=== PATIENT | male | born 1945 | race Caucasian/White ===

== ENCOUNTER 2020-01-05 11:27 | Outpatient (RCR) | payer MEDICARE, SELFPAY ==
[2019-11-02 12:49] LABS: INR 2.2
[2019-12-02 14:50] LABS: INR 2.4; Prothrombin Time 23.7 Seconds (9.64-11.0)
[2020-01-05 11:47] LABS: INR 2.9; Prothrombin Time 28.6 Seconds (9.64-11.0)
== END 2020-01-31 23:59 | disposition home or self-care (01) ==
LOC: CHSLAB 11:27
DX: D68.318 Other hemorrhagic disorder due to intrinsic circulating anticoagulants, antibodies, or inhibitors (principal)
CPT/HCPCS: 36415; 85610

== ENCOUNTER 2020-04-05 11:20 | Outpatient (RCR) | payer MEDICARE, SELFPAY ==
[2020-02-13 08:34] LABS: INR 2.5; Prothrombin Time 24.8 Seconds (9.64-11.0)
[2020-04-05 11:39] LABS: INR 2.2
== END 2020-05-13 23:59 | disposition home or self-care (01) ==
LOC: CHSLAB 11:20
PROVIDERS: PCP General Practice; Visit Provider General Practice
DX: D68.318 Other hemorrhagic disorder due to intrinsic circulating anticoagulants, antibodies, or inhibitors (principal)
CPT/HCPCS: 36415; 85610

== ENCOUNTER 2020-12-11 11:23 | Outpatient (RCR) | payer MEDICARE, SELFPAY ==
[2020-09-24 11:33] LABS: INR 2.8; Prothrombin Time 28.4 Seconds (9.50-12.10)
[2020-10-22 07:46] LABS: INR 2.5; Prothrombin Time 25.6 Seconds (9.50-12.10)
[2020-12-11 11:46] LABS: INR 2.3
== END 2020-12-23 23:59 | disposition home or self-care (01) ==
LOC: CHSLAB 11:23
DX: I48.0 Paroxysmal atrial fibrillation (principal)
CPT/HCPCS: 36415; 85610

== ENCOUNTER 2021-03-05 10:57 | Outpatient (RCR) | payer MEDICARE, SELFPAY ==
[2021-01-16 09:16] LABS: INR 2.6; Prothrombin Time 26.1 Seconds (9.50-12.10)
[2021-03-05 11:20] LABS: INR 2.5; Prothrombin Time 25.8 Seconds (9.50-12.10)
== END 2021-04-16 23:59 | disposition home or self-care (01) ==
LOC: CHSLAB 10:57
DX: I48.0 Paroxysmal atrial fibrillation (principal)
CPT/HCPCS: 36415; 85610

== ENCOUNTER 2021-06-24 11:16 | Outpatient (CLI) | payer MEDICARE, SELFPAY ==
[2021-06-24 11:41] LABS: Basophils Absolute Auto 0.03 K/mm3 (0.00-0.10); Basophils Percent Auto 0.5 % (0.0-1.0); Eosinophils Percent Auto 3.5 % (1.0-6.0); Hemoglobin 14.5 g/dL (12.4-15.3); Immature Granulocyte Absolute 0.01 K/mm3 (0.00-0.00); Immature Granulocyte Percent A 0.2 % (0.0-0.0); Lymphocytes Percent Auto 26.5 % (18.0-42.0); Mean Corpuscular HGB Conc 33.7 g/dL (32.0-36.0); Mean Corpuscular Hemoglobin 29.6 pg (27.0-31.0); Mean Corpuscular Volume 87.8 fL (78.0-102.0); Mean Platelet Volume 8.8 fl (8.7-11.0); Monocytes Absolute Auto 0.49 K/mm3 (0.10-0.90); Monocytes Percent Auto 8.7 % (2.0-11.0); Neutrophils Absolute Auto 3.4 K/mm3 (1.7-7.2); Neutrophils Percent Auto 60.6 % (50.0-70.0); Platelet Count Result 171 K/mm3 (150-420); Red Cell Distribution Width 14.4 % (11.6-14.4); White Blood Count 5.7 K/mm3 (4.8-10.8)
[2021-06-24 11:54] LABS: INR 2.8; Prothrombin Time 28.1 Seconds (9.50-12.10)
[2021-06-24 12:38] LABS: Alanine Aminotransferase 42 U/L (16-63); Albumin Level 3.8 g/dL (3.4-5.0); Alkaline Phosphatase 148 U/L (46-116); Anion Gap 10 mmol/L (8-16); Aspartate Amino Transferase 25 U/L (15-37); Bilirubin,Total 0.6 mg/dL (0.00-1.00); Blood Urea Nitrogen 27 mg/dL (7-18); Carbon Dioxide 27 mmol/L (21-32); Chloride 105 mmol/L (98-108); Cholesterol 110 mg/dL (0-200); Estimated Glomerular Filt Rate 49; Glucose 134 mg/dL (70-99); HDL Direct 32 mg/dL (40-60); LDL Cholesterol Calculated 40 mg/dL (<130); Osmolality Calculated 301 mOsm/kg (285-295); Potassium 3.9 mmol/L (3.5-5.1); Sodium 142 mmol/L (136-145); Total Protein 6.9 g/dL (6.4-8.2); Triglycerides 188 mg/dL (0-150)
== END 2021-06-24 11:17 | disposition home or self-care (01) ==
LOC: CHSLAB 11:21
PROVIDERS: PCP Family Medicine; Visit Provider Family Medicine
DX: E78.2 Mixed hyperlipidemia (principal); I10 Essential (primary) hypertension; I48.0 Paroxysmal atrial fibrillation
CPT/HCPCS: 36415; 80053; 80061; 85025; 85610

== ENCOUNTER 2021-09-11 14:14 | Emergency (ER) | payer MEDICARE, SELFPAY ==
[2021-09-11] VITALS (11 sets, daily range): BP systolic 108–124; BP diastolic 59–98; PULSE 57–159; RESP 16–20; TEMP 36.6–36.9; O2SAT 96–99
--- NOTE | ~2021-09-11 | XR_ITS ---
EXAMINATION: XR chest 1V portable INDICATION: Chest pain TECHNIQUE: Portable AP chest at 1441 hours COMPARISON: None available FINDINGS: The lungs are free of acute opacities. There is a questionable small left pleural effusion. No pneumothorax is identified. The heart size is upper limits of normal for technique. IMPRESSION: 1. Possible small left pleural effusion. Reviewed, dictated and finalized at location A.
--- NOTE | 2021-09-11 14:18 | ECG_ITS ---
Measurements Intervals [place] Rate: 156 P: WI: 0 QRS: -9 QRSD: 83 T: 77 QT: 289 QTc: 466 Interpretive Statements ATRIAL FLUTTER/TACHYCARDIA WITH RAPID VENTRICULAR RESPONSE CANNOT RULE OUT INFERIOR INFARCTION, AGE INDETERMINATE ABNORMAL ECG NO PREVIOUS ECG AVAILABLE FOR COMPARISON Electronically Signed On 09-11-2021 15:42:06 CDT by Saturnino Marques M.D.
[2021-09-11 14:34] LABS: Basophils Absolute Auto 0.05 K/mm3 (0.00-0.10); Basophils Percent Auto 0.6 % (0.0-1.0); Eosinophils Percent Auto 2.6 % (1.0-6.0); Hemoglobin 14.7 g/dL (12.4-15.3); Immature Granulocyte Absolute 0.02 K/mm3 (0.00-0.00); Immature Granulocyte Percent A 0.3 % (0.0-0.0); Lymphocytes Absolute Auto 2.06 K/mm3 (1.10-4.50); Lymphocytes Percent Auto 26.4 % (18.0-42.0); Mean Corpuscular HGB Conc 33.4 g/dL (32.0-36.0); Mean Corpuscular Hemoglobin 28.9 pg (27.0-31.0); Mean Corpuscular Volume 86.4 fL (78.0-102.0); Mean Platelet Volume 8.9 fl (8.7-11.0); Monocytes Absolute Auto 0.55 K/mm3 (0.10-0.90); Neutrophils Absolute Auto 4.9 K/mm3 (1.7-7.2); Neutrophils Percent Auto 63.1 % (50.0-70.0); Platelet Count Result 173 K/mm3 (150-420); Red Blood Count 5.09 M/mm3 (4.70-6.10); Red Cell Distribution Width 14.3 % (11.6-14.4); White Blood Count 7.8 K/mm3 (4.8-10.8)
[2021-09-11] MEDS: SODIUM CHLORIDE 0.9% IV 1,000 ML 999 ML IV CONT ×2 (14:47→15:55)
[2021-09-11] MEDS: ASPIRIN 325 MG ENTERIC TABLET PO (14:49)
[2021-09-11 14:53] LABS: Alanine Aminotransferase 54 U/L (16-63); Albumin Level 3.4 g/dL (3.4-5.0); Alkaline Phosphatase 139 U/L (46-116); Anion Gap 9 mmol/L (8-16); Aspartate Amino Transferase 45 U/L (15-37); Bilirubin,Total 0.6 mg/dL (0.00-1.00); Blood Urea Nitrogen 27 mg/dL (7-18); Calcium 8.5 mg/dL (8.5-10.1); Carbon Dioxide 25 mmol/L (21-32); Chloride 105 mmol/L (98-108); Estimated CRCL calculation 46 ml/min; Estimated Glomerular Filt Rate 46; Glucose 174 mg/dL (70-99); Osmolality Calculated 297 mOsm/kg (285-295); Sodium 139 mmol/L (136-145); Troponin I 39.3 ng/L (0.00-60.4)
[2021-09-11 14:55] LABS: Lactic Acid Reflex 1.8 mmol/L (0.4-2.0); Potassium 5.3 mmol/L (3.5-5.1)
[2021-09-11] MEDS: METOPROLOL TARTRATE INJ 5 MG/5 ML VIAL 2.5 MG IV PUSH ×2 (15:55→16:15)
[2021-09-11 16:55] LABS: Troponin I 74.6 ng/L (0.00-60.4)
[2021-09-11] MEDS: dilTIAZem HCl INJ 25 MG/5 ML VIAL 20 MG IV PUSH (16:56)
[2021-09-11] MEDS: dilTIAZem 100 MG/100 ML 100 MG/100 ML BAG IV CONT (16:57)
--- NOTE | 2021-09-11 17:03 | ECG_ITS ---
Measurements Intervals [place] Rate: 67 P: 20 OR: 216 QRS: -16 QRSD: 93 T: 29 QT: 362 QTc: 383 Interpretive Statements SINUS RHYTHM WITH FIRST DEGREE AV BLOCK WITH OCCASIONAL SUPRAVENTRICULAR PREMATURE COMPLEXES MODERATE VOLTAGE CRITERIA FOR LVH, CONSIDER NORMAL VARIANT [MEETS CRITERIA IN ONE OF: R(aVL), S(V1), R(V5), R(V5/V6)+S(V1)] CANNOT RULE OUT INFERIOR INFARCTION ABNORMAL ECG COMPARED TO ECG 09/11/2021 14:25:35 SINUS RHYTHM NOW PRESENT FIRST DEGREE AV BLOCK NOW PRESENT Electronically Signed On 09-12-2021 16:39:10 CDT by Saturnino Marques M.D.
[2021-09-11] MEDS: SODIUM CHLORIDE 0.9% IV 1,000 ML 125 ML IV CONT (17:06)
[2021-09-11 17:41] LABS: SARS-CoV-2 Ag Negative (Negative)
--- NOTE | 2021-09-11 18:22 | PC.NURSE ---
pt resting comfortably per cot, awaiting call back from hospitalist from [facility] , placed per [facility] transfer center.
--- NOTE | 2021-09-11 18:41 | PC.NURSE ---
pt has declined food tray,.
--- NOTE | 2021-09-11 19:05 | PC.NURSE ---
report to [facility]. update on transfer status. Report to dr bowie , update on transfer status. updated pt and also.
--- NOTE | 2021-09-11 19:42 | PC.NURSE ---
Spoke with [facility] transfer center again for update. Was told that the hospitalist at [facility] still has not called back. The shift changed at 19:00. They will continue to page the new hospitalist.
--- NOTE | 2021-09-11 20:06 | PC.NURSE ---
Dr. Kaur from [facility] called and told Dr. Toledo that there were no beds available for pt at [facility]. Contacted [facility] transfer center again and they are working on placement at [facility].
--- NOTE | 2021-09-11 20:11 | PC.NURSE ---
Updated Pt about transfer. Pt states that he does not want to go to [facility] and he would rather go home. Pt informed that going home is not recommended, but it is his right and if he wishes to leave he may do so. Pt also informed that we can contact any hospital he would like, but his PCP, Dr. Mccullough, is who recommended sending pt to [facility] or [facility] so that he can see him. Dr. Toledo at bedside speaking with pt.
--- NOTE | 2021-09-11 20:32 | PC.NURSE ---
After speaking with pt further about risks/benefits of signing out AMA pt has agreed to be transferred to another facility. Pt still does not want to go to [facility]. Call placed to [facility] per pt's request. Awaiting call back from administrative secretary.
--- NOTE | 2021-09-11 20:36 | ED.CHESTPAIN ---
HPI - Chest Pain General Chief Complaint: Chest Pain Stated Complaint: arm pain chest pressure sob Time Seen by Provider: 09/11/21 14:16 Source: patient, family and RN notes reviewed Mode of arrival: ambulatory Limitations: no limitations History of Present Illness complaint: chest heaviness and chest discomfort Pertinent past history: other (known atrial fibrillation) Onset (ago): year(s) Timing of current episode: daily (2) Prior episodes: Yes Onset: during rest Pain location: left chest Pain radiation: left arm and neck Severity: moderate Pain scale (0-10): 6 Quality: tightness, heaviness and dull Relieving factors: nothing Exacerbating factors: nothing Associated symptoms: dyspnea and palpitations Treatment prior to arrival: none Risk Factors Coronary artery disease risk factors: hyperlipidemia and hypertension Related Data Home Medications Medication Instructions Recorded Confirmed allopurinol 100 mg PO DAILY 09/11/21 09/11/21 atorvastatin 40 mg PO DAILY 09/11/21 09/11/21 hydrochlorothiazide 12.5 mg PO DAILY 09/11/21 09/11/21 hydrochlorothiazide 25 mg PO DAILY 09/11/21 09/11/21 losartan 50 mg PO DAILY 09/11/21 09/11/21 metoprolol succinate 25 mg PO DAILY 09/11/21 09/11/21 tamsulosin 0.4 mg PO DAILY 09/11/21 09/11/21 warfarin 0.5 mg PO DAILY 09/11/21 09/11/21 warfarin 5 mg PO DAILY 09/11/21 09/11/21 Allergies Allergy/AdvReac Type Severity Reaction Status Date / Time No Known Allergies Allergy Unverified 07/16/16 15:50 Review of Systems Review of Systems: All systems reviewed & are unremarkable except as noted in HPI and below PMFSH Past Medical History Medical History (Updated 09/11/21 @ 21:53 by Maxx Toledo MD) Left knee sprain Exam Const: General: no acute distress and alert Nutritional Appearance: well nourished Orientation/consciousness: patient oriented x3 Limitations: no limitations HENMT: Head: normal to inspection Ears: external ears normal, TM's normal bilaterally and EAC's normal General nose exam: Normal external nose present and Normal nares present Face and sinus: normal facial exam and sinuses nontender Mouth: Yes moist mucous membranes Eyes: Conjunctivae: conjunctivae normal Pupils: Equal, round and reactive pupils present EOM: EOMs intact bilaterally Neck: Neck: normal visual inspection and no lymphadenopathy Chest: Chest palpation & inspection: normal inspection of the chest Resp: Effort & Inspection: normal respiratory effort Auscultation: clear to auscultation bilaterally Cardio: Rate: tachycardic Rhythm: abnormal rhythm GI: GI Palp: Yes Soft to palpation and No Tenderness to palpation present (GI) : General: Yes no CVA tenderness Male General Exam: Yes normal external exam Testes: Testes normal Back/Spine/Pelvis: Back: no CVA tenderness Skin: General skin exam: normal color Neuro: General: patient oriented x3, moves all extremities, no focal motor deficits and CN's II-XI intact bilaterally Extrem: General: normal to inspection and no pedal edema Psych: Appearance: grossly normal and well kempt Mental Status: mental status grossly normal Attitude: cooperative Thought content: Yes Normal thought content present Course Course Emergency Course: Pt converted to sinus rhythm and was pain-free in the ED. Reevaluation(s) Date: 09/11/21 Time: 15:10 Vital Signs Vital signs: Vital Signs Temperature 36.6 C 09/11/21 14:20 Pulse Rate 159 H 09/11/21 14:20 Respiratory Rate 20 09/11/21 14:20 Blood Pressure 110/74 09/11/21 14:20 Pulse Oximetry 98 09/11/21 14:20 Temperature 36.9 C 09/11/21 18:23 Pulse Rate 57 L 09/11/21 20:36 Respiratory Rate 16 09/11/21 20:36 Blood Pressure 122/76 09/11/21 20:36 Pulse Oximetry 96 09/11/21 20:36 MDM - Chest Pain Differential Diagnosis Differential diagnosis: Likely unstable angina pectoris, atypical chest pain and other (Nstemi, ) Medical Records Data Attestation: I rev
--- NOTE | 2021-09-11 21:53 | PC.NURSE ---
DHRUV and javier drips continued with EMS transfer to [facility].
== END 2021-09-11 21:58 | disposition short-term general hospital (02) ==
PROVIDERS: Emergency Provider Emergency Medicine; PCP Family Medicine
DX: I20.0 Unstable angina (principal); I21.4 Non-ST elevation (NSTEMI) myocardial infarction; Z20.822 Contact with and (suspected) exposure to COVID-19
CPT/HCPCS: 36415; 71045; 80053; 83605; 84484; 85025; 87426; 93005; 96361; 96365; 96366; 96375; 99291; A9270; C9803; J7030

== ENCOUNTER 2021-09-11 23:28 | Observation (INO) | payer MEDICARE, SELFPAY ==
--- NOTE | ~2021-09-11 | NM_ITS ---
EXAMINATION: NM michelle stress w perfusion DATE: 09/12/2021 15:25 INDICATION: Chest pain. Elevated troponin. TECHNIQUE: Rest images were obtained following intravenous administration of 10.2 mCi Tc99m tetrofosm in (Myoview). The patient was infused intravenously with Lexiscan (regadenoson). Then, 29.3 mCi Tc99m tetrofosmin (Myoview) was administered intravenously, and supine and prone stress images were obtain ed. Data was reconstructed into short axis and horizontal and vertical long axis SPECT images. Gated SPECT images were also obtained. COMPARISON: None. FINDINGS: There is no definite reversible or fixed perfusion abnormality to suggest ischemia or infar ction. There is no segmental wall motion abnormality. Left ventricular ejection fraction measures > 70%. IMPRESSION: 1. No definite ischemia or infarct. 2. Normal left ventricular ejection fraction measuring >70%. Reviewed, dictated and finalized at location A.
[2021-09-11 22:25] VITALS: BP 147/87; PULSE 64; RESP 18; TEMP 36.4; O2SAT 97
[2021-09-11 22:39] VITALS: BMI 27.6
--- NOTE | 2021-09-11 22:40 | ADMGEN ---
This patient, Deep Doan III, was admitted to IMU Room 213-01 at 2230 by EMS from [facility]. Patient/family oriented to hospital policies and general routines including ID bracelet, bed and alarms, visiting hours, pain management, procedures, bathroom and other care routines, personal items, smoking policy, room service/diet, and visiting hours. Information on how to activate the Rapid Response Team has been discussed. Patient/Family are encouraged to report perceived risks to care and to ask questions if they do not understand what they are told or what they should do.
[2021-09-11 23:51] VITALS: BP 120/65; PULSE 84; RESP 15; TEMP 36.3; O2SAT 96
[2021-09-12] VITALS (10 sets, daily range): BP systolic 105–138; BP diastolic 59–71; PULSE 53–82; RESP 18–22; TEMP 36.3–36.8; O2SAT 96–97
--- NOTE | 2021-09-12 | ECHO_ITS ---
Patient Info Name: Deep Pate Young Age: 76 years : 1945 Gender: Male Ht: 72 in Wt: 220 lbs BSA: 2.27 m2 HR: 69 bpm BP: 116 / 62 mmHg Exam Date: 09/12/2021 9:58 AM Exam Location: [facility] Pulmonary Patient Status: Outpatient Admit Date: 09/11/2021 Staff Ordering Physician: Kenya Stovall MD Record Label Intern: Margarito Corea, REJI, RT Attending Provider: Kenya Stovall MD Referring Physician: Sia SAUER; Exam Type: CA echo doppler color flow Study Info Indications R07.9 - Chest pain, unspecified Complete two-dimensional, color flow and Doppler transthoracic echocardiogram is performed. Strain analysis performed. Summary 1. Complete two-dimensional, color flow and Doppler transthoracic echocardiogram is performed. 2. Left ventricular systolic function is normal, estimated at 60-65%. 3. There is moderately increased left ventricular wall thickness. 4. The left ventricular diastolic function is grade II diastolic dysfunction. 5. Left atrial chamber dimension is mildly enlarged. 6. There is mild aortic valve calcification. 7. There is mild aortic valve regurgitation. 8. There is no aortic valve stenosis. 9. There is mild tricuspid valve regurgitation. 10. Moderate pulmonary hypertension, estimated pulmonary arterial systolic pressure is 46 mmHg. 11. There is moderate mitral valve regurgitation. Left Ventricle Left ventricular chamber dimension is normal. Left ventricular systolic function is normal, estimated at 60-65%. There is moderately increased left ventricular wall thickness. Left ventricular septal wall motion is normal. The left ventricular diastolic function is grade II diastolic dysfunction. Global longitudinal strain is normal at -18 %. Right Ventricle Right ventricular chamber dimension is normal. Right ventricular systolic function is normal. Left Atria Left atrial chamber dimension is mildly enlarged. Right Atria Right atrial chamber dimension is normal. Atrial Septum Intact interatrial septum visualized by color flow imaging. Aortic Valve The aortic valve is trileaflet. There is no aortic valve stenosis. There is mild aortic valve regurgitation. There is mild aortic valve calcification. Pulmonic Valve The pulmonic valve is normal. There is no pulmonic valve stenosis. There is no pulmonic regurgitation. Mitral Valve The mitral valve has normal leaflets. There is no mitral valve stenosis. There is moderate mitral valve regurgitation. Tricuspid Valve The tricuspid valve leaflets are normal. There is no significant tricuspid valve stenosis. There is mild tricuspid valve regurgitation. Moderate pulmonary hypertension, estimated pulmonary arterial systolic pressure is 46 mmHg. Pericardium/Pleural There is trivial pericardial effusion. Inferior Vena Cava Dilated inferior vena cava with <50% collapse upon inspiration consistent with elevated right atrial pressure, 15 mmHg. Aorta The aortic root size at the sinus of Valsalva is normal. The prox ascending aorta size is normal. Left Ventricular Outflow Tract Name Value Normal LVOT 2D LVOT Diameter 2.0 cm LVOT Doppler
--- NOTE | 2021-09-12 | EST_ITS ---
Patient Info Name: Deep Doan Age: 76 years : 1945 Gender: Male Ht: 72 in Wt: 204 lbs BSA: 2.18 m2 HR: 71 bpm BP: 134 / 70 mmHg Exam Date: 09/12/2021 1:32 PM Exam Location: [facility] Stress Patient Status: Inpatient Admit Date: 09/11/2021 Staff Ordering Physician: Trish Bell Attending Provider: Kenya Stovall MD Exercise Technologist: Kamryn Gallegos RDCS Exercise Physician: milton Exam Type: CA stress michelle w NM Study Info Indications R07.89 - Other chest pain A regadenoson stress test was performed. Summary 1. Please correlate with nuclear medicine images, reported separately. 2. No abnormal ST-T wave changes with lexiscan. Protocol: Lexiscan Stress ECG Details Stage: REST Duration (min): 0 min : 55 sec HR (bpm): 71 SBP (mmHg): 134 DBP (mmHg): 70 Stage: REST Duration (min): 7 min : 2 sec HR (bpm): 67 SBP (mmHg): 134 DBP (mmHg): 70 Stage: STAGE 1 Duration (min): 0 min : 59 sec HR (bpm): 91 SBP (mmHg): 145 DBP (mmHg): 82 Stage: RECOVERY Duration (min): 1 min : 0 sec HR (bpm): 83 SBP (mmHg): 153 DBP (mmHg): 64 Stage: RECOVERY Duration (min): 2 min : 0 sec HR (bpm): 80 SBP (mmHg): 153 DBP (mmHg): 64 Stage: RECOVERY Duration (min): 3 min : 0 sec HR (bpm): 79 SBP (mmHg): 135 DBP (mmHg): 65 Stage: RECOVERY Duration (min): 3 min : 25 sec HR (bpm): 77 SBP (mmHg): 135 DBP (mmHg): 65 Rest HR: 67 bpm Peak HR: 91 bpm Rest Sys BP: 134 mmHg Peak Sys BP: 153 mmHg Max Pred HR: 145 bpm % Max Pred HR: 63 % Target HR: 123 bpm Max RPP: 13,923 bpm*mmHg BP Response: Normal blood pressure response Termination Reason: Completed protocol Cardiac Symptoms: None Total Time: 1 min : 0 sec Rest Jones BP: 70 mmHg Peak Jones BP: 64 mmHg Total Dose: 0.4 mg Resting ECG Normal sinus rhythm. PACs. Stress ECG No abnormal ST/T wave changes with exercise. Arrhythmias Frequent PACs. Occasional PVCs. Report Signatures
[2021-09-12] MEDS: LOSARTAN POTASSIUM 50 MG TABLET PO (00:17)
[2021-09-12] MEDS: dilTIAZem HCL 60 MG TABLET PO ×2 (00:17→06:32)
[2021-09-12] MEDS: METOPROLOL SUCCINATE EXT REL 25 MG TABCR PO (00:17)
[2021-09-12] MEDS: ATORVASTATIN 40 MG TABLET PO (00:17)
--- NOTE | 2021-09-12 00:24 | PC.NURSE ---
Patient direct admitted from [facility] on a Cardizem drip at 5. Drip has been stopped now and PO Cardizem 60mg given as ordered.
[2021-09-12 05:24] LABS: Anion Gap 6 mmol/L (8-16); Blood Urea Nitrogen 29 mg/dL (9-20); Carbon Dioxide 22 mmol/L (22-30); Chloride 113 mmol/L (98-107); Estimated CRCL calculation 45 ml/min; Estimated Glomerular Filt Rate 49; Glucose 165 mg/dL (65-110); Potassium 4.1 mmol/L (3.4-5.0); Sodium 141 mmol/L (137-145)
[2021-09-12 05:38] LABS: INR 2.4; Prothrombin Time 25.5 Seconds (11.1-14.7); Troponin I 0.142 ng/mL (0.000-0.034)
[2021-09-12] MEDS: allopurinoL 100 MG TABLET PO (09:39)
[2021-09-12] MEDS: TAMSULOSIN HCL 0.4 MG CAPSULE PO (09:39)
--- NOTE | 2021-09-12 11:44 | PM.IMHP ---
H&P: HPI History of Present Illness Date/Time: 09/12/21 11:44 Chief Complaint: Shortness of breath, palpitations Narrative: Date of service 09/12/2021 Reason for admission: Shortness breath, palpitations, non-STEMI History: Patient is a 76-year-old male who has a history of paroxysmal atrial fibrillation, hypertension, hyperlipidemia as well as a TIA. Patient states that about 3-4 years ago he had 2 TIAs. He also describes being cardioverted. This was treated at [place]. He recently established with his new primary care provider Dr. Mccullough. He was recently switched from hydrochlorothiazide to Toprol-XL because of some worsening palpitations a he had been having. Over the past couple of days prior to admission he had been feeling rather poorly. He was having significant amounts of shortness of breath as well as palpitations. He generally felt palpitations most of the time. He went to bed the night before last and was feeling okay but then woke up short of breath. His shortness of breath persisted and his palpitations continued to the point that his insisted that he go to the emergency department for further workup and evaluation. In the emergency room he was found to be in atrial fibrillation with rapid ventricular response. He was started on diltiazem and did convert to sinus rhythm. His symptoms improved he states over a period of several minutes after treatment in the ER and [place]. His heart rate initially was in the 150s to 160s. Blood work though was performed including troponins. Troponins did increase and he was transferred to [facility] from [place] for further workup evaluation and treatment. Patient feels well today and denies any chest pain, shortness breath, syncope, presyncope, paroxysmal nocturnal dyspnea, orthopnea, edema palpitations at this present time. Heart rate and rhythm is still normal. Patient does describe some left sided shoulder/arm pain that did radiate into the left side of his neck and across his upper anterior chest yesterday while having shortness of breath and his extreme palpitations. Review of Systems Review of Systems: All systems reviewed & are unremarkable except as noted in HPI and below Constitutional: Constitutional: Denies weakness Eyes: Eyes: Denies blurry vision ENT: Reports Normal hearing present Cardiovascular: Cardiovascular: Reports chest pain Respiratory: Respiratory: Reports dyspnea Gastrointestinal: Gastrointestinal: Denies abdominal pain Genitourinary: Genitourinary: Denies dysuria Musculoskeletal: Musculoskeletal: Denies neck pain Integumentary/Breasts: Skin/Breast: Denies dry skin Neurologic: Denies headache(s) Psychiatric: Psychiatric: Denies anxiety Endocrine: Endocrine: Denies cold intolerance Hematologic/Lymphatic: Hematologic/Lymphatic: Denies easy bleeding Allergic/Immunologic: Allergic/Immunologic: Denies GI upset with certain foods PMFSH Past Medical History Medical History (Updated 09/12/21 @ 11:53 by Saturnino Marques MD) Chronic anticoagulation Essential hypertension History of TIA (transient ischemic attack) Hyperlipidemia Left knee sprain Paroxysmal atrial fibrillation Family History Family History (Updated 09/12/21 @ 11:52 by Saturnino Marques MD) Father Bladder cancer Social History Social History Smoking packs per day: 2 Smoking cigarettes per day: 40.0 Years smoked: 45 Smoking pack-years: 90.00 Smoking status: Former smoker Second hand tobacco smoke exposure: No Alcohol intake: current Substance use: current Substance use type: does not use Other substance usage details: patient has occasional alcohol drink every few months Spiritual care concerns: No Meds Home Medications and Allergies Home Medications Medication Instructions Recorded Confirmed Type allopurinol 100 mg PO DAILY 09/11/21 09/11/21 History atorvastatin 40 mg PO HS 09/11/21 09/11/21 History losartan 50 mg
--- NOTE | 2021-09-12 15:29 | PM.SD2 ---
Same Day Admit/Disch: HPI History of Present Illness Chief complaint: A fib with RVR,chest pain, elevated troponin Narrative: Patient is a 76-year-old male who has a history of paroxysmal atrial fibrillation, hypertension, hyperlipidemia as well as a TIA. Patient states that about 3-4 years ago he had 2 TIAs. He also describes being cardioverted. This was treated at [place]. He recently established with his new primary care provider Dr. Mccullough. He was recently switched from hydrochlorothiazide to Toprol-XL because of some worsening palpitations a he had been having. Over the past couple of days prior to admission he had been feeling rather poorly. He was having significant amounts of shortness of breath as well as palpitations. He generally felt palpitations most of the time. He went to bed the night before last and was feeling okay but then woke up short of breath. His shortness of breath persisted and his palpitations continued to the point that his insisted that he go to the emergency department for further workup and evaluation. In the emergency room he was found to be in atrial fibrillation with rapid ventricular response. He was started on diltiazem and did convert to sinus rhythm. His symptoms improved he states over a period of several minutes after treatment in the ER and [place]. His heart rate initially was in the 150s to 160s. Blood work though was performed including troponins. Troponins did increase and he was transferred to [facility] from [place] for further workup evaluation and treatment. Patient feels well today and denies any chest pain, shortness breath, syncope, presyncope, paroxysmal nocturnal dyspnea, orthopnea, edema palpitations at this present time. Heart rate and rhythm is still normal. Patient does describe some left sided shoulder/arm pain that did radiate into the left side of his neck and across his upper anterior chest yesterday while having shortness of breath and his extreme palpitations. [facility] Past Medical History Medical History Chronic anticoagulation Essential hypertension History of TIA (transient ischemic attack) Hyperlipidemia Left knee sprain Paroxysmal atrial fibrillation Family History Family History Father Bladder cancer Social History Social History Smoking packs per day: 2 Smoking cigarettes per day: 40.0 Years smoked: 45 Smoking pack-years: 90.00 Smoking status: Former smoker Second hand tobacco smoke exposure: No Alcohol intake: current Substance use: current Substance use type: does not use Other substance usage details: patient has occasional alcohol drink every few months Spiritual care concerns: No Same Day Admit/Disch: Med Pre-admit Medications Home Medications Medication Instructions Recorded Confirmed Type allopurinol 100 mg PO DAILY 09/11/21 09/11/21 History atorvastatin 40 mg PO HS 09/11/21 09/11/21 History losartan 50 mg PO HS 09/11/21 09/11/21 History omeprazole 20 mg DAILY 09/11/21 09/11/21 History tamsulosin 0.4 mg PO DAILY 09/11/21 09/11/21 History warfarin 0.5 mg PO DAILY 09/11/21 09/11/21 History warfarin 5 mg PO DAILY 09/11/21 09/11/21 History metoprolol succinate 50 mg PO HS 50 Days #50 tablet 09/12/21 Rx Exam Narrative: Patient awake alert oriented. Appears stated age Const: General: comfortable and no acute distress HENMT: General nose exam: Normal nares present Eyes: Sclera: sclerae normal Neck: Neck: supple and no JVD Chest: Other: No reproducible chest wall pain to palpation Resp: Auscultation: clear to auscultation bilaterally Cardio: Rate: regular rate Rhythm: regular rhythm Other: 2/6 systolic ejection murmur at base GI: Inspection: non-distended Auscultation: normal bowel sounds Skin: General skin exam: normal color Neur
== END 2021-09-12 16:23 | disposition home or self-care (01) ==
PROVIDERS: Admitting Provider Internal Medicine Cardiovascular Disease; PCP Family Medicine; Visit Provider Internal Medicine Cardiovascular Disease
DX: I48.0 Paroxysmal atrial fibrillation (principal); R77.8 Other specified abnormalities of plasma proteins; R79.89 Other specified abnormal findings of blood chemistry; I10 Essential (primary) hypertension; E78.5 Hyperlipidemia, unspecified; Z86.73 Personal history of transient ischemic attack (TIA), and cerebral infarction without residual deficits; Z87.891 Personal history of nicotine dependence; Z79.01 Long term (current) use of anticoagulants
CPT/HCPCS: 36415; 78452; 80048; 84443; 84484; 85610; 93017; 93306; A9270; A9502; G0378; J2785

== ENCOUNTER 2021-10-04 11:13 | Outpatient (RCR) | payer MEDICARE, SELFPAY ==
[2021-08-07 13:47] LABS: INR 2.2; Prothrombin Time 22.3 Seconds (9.50-12.10)
[2021-08-30 12:04] LABS: INR 2.5
[2021-10-04 11:40] LABS: INR 2.2; Prothrombin Time 22.4 Seconds (9.50-12.10)
== END 2021-11-05 23:59 | disposition home or self-care (01) ==
LOC: CHSLAB 11:13
PROVIDERS: PCP Family Medicine; Visit Provider Family Medicine
DX: I48.0 Paroxysmal atrial fibrillation (principal)
CPT/HCPCS: 36415; 85610

== ENCOUNTER 2021-12-12 12:37 | Outpatient (CLI) | payer MEDICARE, SELFPAY ==
[2021-12-12 13:05] LABS: Prothrombin Time 20.3 Seconds (9.50-12.10)
== END 2021-12-12 12:38 | disposition home or self-care (01) ==
LOC: CHSLAB 12:40
PROVIDERS: PCP Family Medicine; Visit Provider Family Medicine
DX: I48.0 Paroxysmal atrial fibrillation (principal)
CPT/HCPCS: 36415; 85610

== ENCOUNTER 2022-01-03 10:50 | Outpatient (RCR) | payer MEDICARE, SELFPAY ==
[2021-11-22 14:40] LABS: INR 3.8; Prothrombin Time 37.7 Seconds (9.50-12.10)
[2022-01-03 11:13] LABS: INR 1.5; Prothrombin Time 15.6 Seconds (9.50-12.10)
== END 2022-02-20 23:59 | disposition home or self-care (01) ==
LOC: CHSLAB 10:50
PROVIDERS: PCP Family Medicine; Visit Provider Family Medicine
DX: I48.0 Paroxysmal atrial fibrillation (principal)
CPT/HCPCS: 36415; 85610

== ENCOUNTER 2022-01-16 09:38 | Outpatient (CLI) | payer MEDICARE, SELFPAY ==
[2022-01-16 09:55] LABS: Basophils Absolute Auto 0.04 K/mm3 (0.00-0.10); Basophils Percent Auto 0.6 % (0.0-1.0); Eosinophils Absolute Auto 0.26 K/mm3 (0.02-0.50); Eosinophils Percent Auto 3.9 % (1.0-6.0); Hematocrit 43.8 % (37.0-46.0); Hemoglobin 14.6 g/dL (12.4-15.3); Immature Granulocyte Absolute 0.04 K/mm3 (0.00-0.00); Immature Granulocyte Percent A 0.6 % (0.0-0.0); Lymphocytes Absolute Auto 1.73 K/mm3 (1.10-4.50); Lymphocytes Percent Auto 26.1 % (18.0-42.0); Mean Corpuscular HGB Conc 33.3 g/dL (32.0-36.0); Mean Corpuscular Hemoglobin 28.6 pg (27.0-31.0); Mean Corpuscular Volume 85.7 fL (78.0-102.0); Mean Platelet Volume 9.1 fl (8.7-11.0); Monocytes Absolute Auto 0.59 K/mm3 (0.10-0.90); Monocytes Percent Auto 8.9 % (2.0-11.0); Neutrophils Percent Auto 59.9 % (50.0-70.0); Platelet Count Result 177 K/mm3 (150-420); Red Blood Count 5.11 M/mm3 (4.70-6.10); Red Cell Distribution Width 14.6 % (11.6-14.4); White Blood Count 6.6 K/mm3 (4.8-10.8)
[2022-01-16 10:09] LABS: INR 2.9; Prothrombin Time 29.1 Seconds (9.50-12.10)
[2022-01-16 10:12] LABS: Alanine Aminotransferase 41 U/L (16-63); Albumin Level 3.7 g/dL (3.4-5.0); Alkaline Phosphatase 145 U/L (46-116); Anion Gap 9 mmol/L (8-16); Aspartate Amino Transferase 17 U/L (15-37); Bilirubin,Total 0.4 mg/dL (0.00-1.00); Blood Urea Nitrogen 29 mg/dL (7-18); Calcium 8.8 mg/dL (8.5-10.1); Carbon Dioxide 26 mmol/L (21-32); Chloride 109 mmol/L (98-108); Cholesterol 91 mg/dL (0-200); Estimated Glomerular Filt Rate 50; Glucose 132 mg/dL (70-99); HDL Direct 30 mg/dL (40-60); LDL Cholesterol Calculated 19 mg/dL (<130); Osmolality Calculated 305 mOsm/kg (285-295); Potassium 4.1 mmol/L (3.5-5.1); Sodium 144 mmol/L (136-145); Total Protein 6.8 g/dL (6.4-8.2); Triglycerides 210 mg/dL (0-150)
== END 2022-01-16 09:39 | disposition home or self-care (01) ==
LOC: CHSLAB 09:40
PROVIDERS: PCP Family Medicine; Visit Provider Family Medicine
DX: I48.0 Paroxysmal atrial fibrillation (principal); I10 Essential (primary) hypertension
CPT/HCPCS: 36415; 80053; 80061; 85025; 85610

== ENCOUNTER 2022-05-27 07:48 | Outpatient (RCR) | payer MEDICARE, SELFPAY ==
[2022-02-28 08:39] LABS: INR 3.3; Prothrombin Time 32.5 Seconds (9.50-12.10)
[2022-03-15 10:47] LABS: INR 1.8; Prothrombin Time 19.2 Seconds (9.50-12.10)
[2022-04-01 14:19] LABS: INR 2.2; Prothrombin Time 22.9 Seconds (9.50-12.10)
[2022-05-08 09:09] LABS: INR 1.9
[2022-05-27 08:32] LABS: Prothrombin Time 20.3 Seconds (9.50-12.10)
== END 2022-05-29 23:59 | disposition home or self-care (01) ==
LOC: CHSLAB 07:48
PROVIDERS: PCP Family Medicine; Visit Provider Family Medicine
DX: I48.0 Paroxysmal atrial fibrillation (principal)
CPT/HCPCS: 36415; 85610

== ENCOUNTER 2022-07-11 08:45 | Outpatient (CLI) | payer MEDICARE, SELFPAY ==
[2022-07-11 09:04] LABS: Basophils Absolute Auto 0.05 K/mm3 (0.00-0.10); Basophils Percent Auto 0.8 % (0.0-1.0); Eosinophils Absolute Auto 0.23 K/mm3 (0.02-0.50); Eosinophils Percent Auto 3.7 % (1.0-6.0); Hemoglobin 14.4 g/dL (12.4-15.3); Immature Granulocyte Absolute 0.02 K/mm3 (0.00-0.00); Immature Granulocyte Percent A 0.3 % (0.0-0.0); Lymphocytes Absolute Auto 1.61 K/mm3 (1.10-4.50); Lymphocytes Percent Auto 25.6 % (18.0-42.0); Mean Corpuscular HGB Conc 33.5 g/dL (32.0-36.0); Mean Corpuscular Hemoglobin 28.7 pg (27.0-31.0); Mean Corpuscular Volume 85.7 fL (78.0-102.0); Mean Platelet Volume 8.7 fl (8.7-11.0); Monocytes Absolute Auto 0.56 K/mm3 (0.10-0.90); Monocytes Percent Auto 8.9 % (2.0-11.0); Neutrophils Absolute Auto 3.8 K/mm3 (1.7-7.2); Neutrophils Percent Auto 60.7 % (50.0-70.0); Platelet Count Result 182 K/mm3 (150-420); Red Blood Count 5.02 M/mm3 (4.70-6.10); Red Cell Distribution Width 14.1 % (11.6-14.4); White Blood Count 6.3 K/mm3 (4.8-10.8)
[2022-07-11 09:16] LABS: Prothrombin Time 20.8 Seconds (9.50-12.10)
[2022-07-11 09:44] LABS: Alanine Aminotransferase 32 U/L (16-63); Albumin Level 3.7 g/dL (3.4-5.0); Alkaline Phosphatase 140 U/L (46-116); Anion Gap 6 mmol/L (8-16); Aspartate Amino Transferase 11 U/L (15-37); Bilirubin,Total 0.4 mg/dL (0.00-1.00); Blood Urea Nitrogen 23 mg/dL (7-18); Calcium 8.9 mg/dL (8.5-10.1); Carbon Dioxide 31 mmol/L (21-32); Chloride 107 mmol/L (98-108); Cholesterol 192 mg/dL (0-200); Estimated Glomerular Filt Rate > 60; Glucose 132 mg/dL (70-99); HDL Direct 32 mg/dL (40-60); LDL Cholesterol Calculated 85 mg/dL (<130); Osmolality Calculated 303 mOsm/kg (285-295); Potassium 4.3 mmol/L (3.5-5.1); Sodium 144 mmol/L (136-145); Total Protein 6.9 g/dL (6.4-8.2); Triglycerides 373 mg/dL (0-150)
== END 2022-07-11 08:46 | disposition home or self-care (01) ==
LOC: CHSLAB 08:47
PROVIDERS: PCP Family Medicine; Visit Provider Family Medicine
DX: I48.0 Paroxysmal atrial fibrillation (principal); I10 Essential (primary) hypertension
CPT/HCPCS: 36415; 80053; 80061; 85025; 85610

== ENCOUNTER 2022-09-15 09:56 | Outpatient (RCR) | payer MEDICARE, SELFPAY ==
[2022-07-02 11:52] LABS: INR 2.5; Prothrombin Time 25.1 Seconds (9.50-12.10)
[2022-08-07 09:37] LABS: INR 2.8; Prothrombin Time 28.6 Seconds (9.50-12.10)
[2022-09-15 10:25] LABS: INR 2.4; Prothrombin Time 24.1 Seconds (9.50-12.10)
== END 2022-09-30 23:59 | disposition home or self-care (01) ==
LOC: CHSLAB 09:56
PROVIDERS: PCP Family Medicine; Visit Provider Family Medicine
DX: I48.0 Paroxysmal atrial fibrillation (principal)
CPT/HCPCS: 36415; 85610

== ENCOUNTER 2022-11-28 10:30 | Outpatient (RCR) | payer MEDICARE, SELFPAY ==
[2022-11-28 10:54] LABS: Prothrombin Time 30.5 Seconds (9.50-12.10)
== END 2023-02-26 23:59 | disposition home or self-care (01) ==
LOC: CHSLAB 10:30
PROVIDERS: PCP Family Medicine; Visit Provider Family Medicine
DX: I48.0 Paroxysmal atrial fibrillation (principal)
CPT/HCPCS: 36415; 85610

== ENCOUNTER 2023-03-09 10:42 | Outpatient (RCR) | payer MEDICARE, SELFPAY ==
[2022-12-12 13:56] LABS: INR 1.7; Prothrombin Time 17.7 Seconds (9.50-12.10)
[2023-02-27 10:23] LABS: INR 1.9; Prothrombin Time 20.2 Seconds (9.50-12.10)
[2023-03-09 11:11] LABS: INR 1.6; Prothrombin Time 16.6 Seconds (9.50-12.10)
== END 2023-03-11 23:59 | disposition home or self-care (01) ==
LOC: CHSLAB 10:42
PROVIDERS: PCP Family Medicine; Visit Provider Family Medicine
DX: I48.0 Paroxysmal atrial fibrillation (principal)
CPT/HCPCS: 36415; 85610

== ENCOUNTER 2023-05-27 10:06 | Outpatient (RCR) | payer MEDICARE, SELFPAY ==
[2023-03-16 11:43] LABS: INR 1.6; Prothrombin Time 16.7 Seconds (9.50-12.10)
[2023-03-26 09:08] LABS: INR 1.7; Prothrombin Time 17.8 Seconds (9.50-12.10)
[2023-04-02 17:09] LABS: INR 1.5; Prothrombin Time 16.4 Seconds (9.50-12.10)
[2023-04-10 15:41] LABS: INR 1.9; Prothrombin Time 19.8 Seconds (9.50-12.10)
[2023-04-21 08:00] LABS: INR 1.9; Prothrombin Time 19.6 Seconds (9.50-12.10)
[2023-05-04 07:54] LABS: INR 1.9; Prothrombin Time 20.3 Seconds (9.50-12.10)
[2023-05-19 11:44] LABS: INR 1.8; Prothrombin Time 18.6 Seconds (9.50-12.10)
[2023-05-27 10:33] LABS: INR 3.1; Prothrombin Time 31.4 Seconds (9.50-12.10)
== END 2023-06-14 23:59 | disposition home or self-care (01) ==
LOC: CHSLAB 10:06
PROVIDERS: PCP Family Medicine; Visit Provider Family Medicine
DX: I48.0 Paroxysmal atrial fibrillation (principal)
CPT/HCPCS: 36415; 85610

== ENCOUNTER 2023-09-09 14:25 | Outpatient (CLI) | payer MEDICARE, SELFPAY ==
--- NOTE | ~2023-09-09 | US_ITS ---
EXAMINATION: US soft tissue LE LT DATE: 09/09/2023 14:55 INDICATION: Chronic posterior left knee pain TECHNIQUE: Multiple grayscale and Doppler ultrasound images of the region of concern at the popliteal fossa the posterior left knee were obtained. COMPARISON: None FINDINGS: Popliteal artery appears normal with no aneurysm. Normal patent and compressible left popliteal and g astrocnemius veins. No Silveira's cyst or other abnormal masses or fluid collections identified at the r egion of concern. IMPRESSION: 1. Normal ultrasound of the popliteal fossa the left knee. No etiology identified for posterior left knee pain. Reviewed, dictated and finalized at location B. IMPRESSION: 1. Normal ultrasound of the popliteal fossa the left knee. No etiology identifi ed for posterior left knee pain.
--- NOTE | ~2023-09-09 | CT_ITS ---
EXAMINATION: CT abdomen pelvis wo con DATE: 09/09/2023 14:45 INDICATION: Unspecified abdominal pain TECHNIQUE: Computed tomography (CT) of the abdomen and pelvis was performed without intravenous contr ast. The dose-length product was 988.07 mGy-cm. Automated exposure control and iterative reconstructi on technique were employed. COMPARISON: None. FINDINGS: Left lower lobe atelectasis. Heart size normal. Status post cholecystectomy. Ventral hernia containing fat. There is fluid surrounding the rectum in the presacral space. Colonic diverticulosis without divertic ulitis. Enlarged prostate gland. The liver, spleen, pancreas, adrenal glands are unremarkable. There are small low-density lesions in both kidneys, too small to characterize. Mild lumbar spondylosis. IMPRESSION: 1. Small low-density lesions in both kidneys, too small to characterize, consider correlation with ul trasound. 2: Supraumbilical ventral hernia containing fat. 3: Perirectal/presacral fluid, nonspecific. 4: Enlarged prostate gland. Reviewed, dictated and finalized at location A. IMPRESSION: 1. Small low-density lesions in both kidneys, too small to characterize, consid er correlation with ultrasound. 2: Supraumbilical ventral hernia containing fat. 3: Perirectal/presacral fluid, nonspecific. 4: Enlarged prostate gland.
== END 2023-09-09 14:26 ==
PROVIDERS: PCP Family Medicine; Visit Provider Family Medicine
DX: R10.9 Unspecified abdominal pain (principal); M25.562 Pain in left knee; N40.0 Benign prostatic hyperplasia without lower urinary tract symptoms; K43.9 Ventral hernia without obstruction or gangrene
CPT/HCPCS: 74176; 76882